=== PATIENT | male | born 1960 | race Caucasian/White ===

== ENCOUNTER 2019-03-22 09:42 | Inpatient (IN) ==
--- NOTE | 2019-02-03 07:55 | PAT Medication Instructions ---
Medication Instructions Date of Service February 03, 2019 Home Medications hyalur ac-chond sul-colg II-AA [Hyaluronic Acid (chond-collgn)] 1 cap PO QAM naproxen sodium 660 mg PO QAM ASK your surgeon for instructions naproxen sodium 660 mg PO QAM STOP taking 2 weeks before surgery (or as soon as possible if surgery is within 2 weeks) hyalur ac-chond sul-colg II-AA [Hyaluronic Acid (chond-collgn)] 1 cap PO QAM Other Notes If you have any questions please call us at [phone] or [phone] or [phone] or [phone]
--- NOTE | 2019-02-03 15:12 | Anesthesiology Consultation ---
Date of Service February 03, 2019 Assessment & Plan (1) Encounter for pre-operative examination: Chart Review Chart Review: Pending: Refer to Additional Notes / Consult section (pending preop testing (labs, EKG, CXR)) and Patient seen in Pre Admission Testing Teaching & Discussion Pre-Anesthesia Teaching/Discussion Notes: Instructed NPO after midnight before surgery,except medications with 15 cc of water. Medication instructions provide d according to the PAT guidelines. History Surgery Operation Date: 03/04/19 10:40 Proposed Procedures p Right total Knee Replacement - Hector Mohan MD Height/Weight Height: 5 ft 10 in Weight: 121.2 kg Allergies Allergy/AdvReac Type Severity Reaction Status Date / Time No Known Allergies Allergy Verified 01/27/19 10:18 Medications Home Medications Medication Instructions Recorded Confirmed Last Taken hyalur ac-chond sul-colg II-AA 1 cap PO QAM 01/27/19 01/27/19 Unknown [Hyaluronic Acid (chond-collgn)] naproxen sodium 660 mg PO QAM 01/27/19 01/27/19 Unknown Past Medical History Medical History Obesity Osteoarthritis Exercise / Class Metabolic Activity II 4-5 Yardwork/Stairs/Walk up hill Past Surgical History Surgical History History of arthroscopic knee surgery History of colonoscopy History of foot surgery Rt Past Anesthesia History No Hx of Anesthesia Complications Father: "goofiness" with ? morphine History of PONV No Hx of PONV and No Hx of Motion Sickness Social History Smoking Status: Never smoker Do You Dip or Chew Tobacco: No Hx Alcohol Use: No Hx Substance Use: No Review of Systems Patient denies chest pain, shortness of breath, dyspnea on exertion, joint pain, reflux, cough, wheezing, palpitations. Physical Exam Vital Signs VITALS BP 122/77 P 52 TEMP 97.7 SP02 97%RA RESP 16 PHYSICAL Full neck and c-spine range of motion. Full TMJ range of motion. TMD 3 finger breaths Mallampati Score 2 Dentition: missing side Lungs: clear throughout to auscultation Cardiac: regular rate and rhythm, no murmurs noted Spine: normal Carotid arteries: negative bruit Extremities: no edema
[2019-02-03 15:46] LABS: Basophils # (auto) 0.09 K/uL (0-0.2); Basophils % (auto) 1.1 %; Eosinophils # (auto) 0.13 K/uL (0-0.5); Eosinophils % (auto) 1.6 %; Hematocrit (blood only) 43.6 % (42-52); Hemoglobin 14.9 g/dL (14.0-18.0); Immature Granulocytes # (auto) 0.03 K/uL (0.00-0.02); Immature Granulocytes % (auto) 0.4 %; Lymphocytes # (auto) 1.65 K/uL (1.2-3.4); Lymphocytes % (auto) 20.6 %; Mean Corpuscular Hgb Conc 34.2 g/dL (32-36); Mean Corpuscular Volume 87.7 fL (80-100); Mean Platelet Volume 10.3 fL (7.4-10.4); Monocytes # (auto) 0.47 K/uL (0.11-0.59); Monocytes % (auto) 5.9 %; Neutrophils # (auto) 5.63 K/uL (1.4-6.5); Neutrophils % (auto) 70.4 %; Platelet Count 207 K/uL (130-400); RDW Coefficient of Variation 13.1 % (11.5-14.5); RDW Standard Deviation 41.8 fL (36.4-46.3); Red Blood Count 4.97 M/uL (4.7-6.1)
[2019-02-03 15:53] LABS: BUN Creatinine Ratio 28.9 (10-20); Calcium 9.3 mg/dl (8.5-10.1); Creatinine Clr Calc Pharmacy 112.1 ml/min; Potassium 3.8 mmol/L (3.5-5.1)
[2019-02-03 15:57] LABS: Partial Thromboplastin Time 26.5 Seconds (21.0-31.0); Prothrombin Time 10.6 Seconds (9.0-12.0)
--- NOTE | 2019-02-04 10:47 | XRay Report ---
XR chest Pre-admission PA/Lat CLINICAL HISTORY: 58 years-old Male presenting with preoperative assessment. TECHNIQUE: PA and lateral views of the chest were obtained. COMPARISON: None. FINDINGS: Top normal cardiac size. Lungs and pleural spaces clear. Degenerative changes of the thoracic spine. Upper abdomen normal. IMPRESSION: 1. No acute cardiopulmonary disease. Electronically signed by: Angelo Bland M.D. 02/04/2019 10:46 AM
--- NOTE | 2019-03-19 19:02 | History and Physical Report ---
DATE OF ADMISSION: 03/22/2019 CHIEF COMPLAINT: Bilateral knee pain, discomfort and instability. HISTORY OF PRESENT ILLNESS: The patient is a 58-year-old gentleman who presents for treatment of his knees. He presents specifically for surgical treatment. He has got a long history of bilateral knee pain and discomfort for as long as he can remember. It was initially his right knee, but now the left knee is caught up to the right. He describes global pain in both knees. He has pain with every step he takes. 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 The more he walks, the more it hurts. He limps all day long, but more as the day goes on. He has been through extensive conservative treatment including medicines and braces. He has gone through multiple braces and they just do not seem to help anymore. It is a good time of the year for him to have a surgery and he would like to have one of his knees fixed. PAST MEDICAL HISTORY: Mild obesity, BMI of 38. PAST SURGICAL HISTORY: Includes right heel spur surgery. ALLERGIES: None. CURRENT MEDICATIONS: Naproxen. SOCIAL HISTORY: A 58-year-old male. He is a roth. He is from the [facility]. Does not smoke. He is . Two children. Does not drink. FAMILY HISTORY: Significant for melanoma and diabetes. REVIEW OF HISTORY: Negative for diabetes, neurologic problem, vascular problem, bleeding disorders. Denies any chest pain or shortness of breath. No history of DVT or PE. No known bleeding problems. PHYSICAL EXAMINATION: GENERAL: Reveals a healthy, pleasant, middle-aged male. Looks to be in pretty good health. HEENT: Benign. NECK: Supple, no lymphadenopathy. LUNGS: Clear to auscultation. HEART: Has a regular rate and rhythm. ABDOMEN: Soft, nontender, nondistended. EXTREMITIES: Grossly neurovascularly intact except as follows: Examination of both knees reveals patient walks with a waddling gait. He has got varus alignment to both knees with a varus thrust with weightbearing on both sides. Examination of the right knee reveals varus deformity. He has got tenderness medially. He has got bony hypertrophy medially. Moderate size joint effusion. Range of motion about 5 degrees short of full extension to about 100-105 degrees of flexion. He does have some laxity to Johnie testing. No pain with hip motion. He is neurologically intact. Examination of the left knee reveals varus deformity. He has got bony hypertrophy medially. Small knee effusion. Range of motion 5-110. No instability. X-RAYS: X-rays of both knees revealed advanced bilateral knee DJD. He has got complete loss of his medial joint space bilaterally with subchondral sclerosis and osteophytes in all 3 compartments. Both knees are pretty equal in severity. ASSESSMENT: A 58-year-old male roth with advanced bilateral knee degenerative joint disease. He has failed conservative treatment and would like to proceed with surgical treatment. This is the time of year that he can have his knee fixed and he would like to do one knee this year, maybe one next year. PLAN: We will take him to the operating room and do a right total knee replacement. That seems to be slightly worse than the other and has been bothering him longer. The risks and benefits of right total knee replacement were explained to the patient including but not limited to DVT, PE, , infection, neurological injury, vascular injury, bleeding problem, pain, limited range of motion, stiffness, failure to relieve his symptoms, incomplete relief of symptoms, persistent pain, need for revision surgery, etc. The patient understands and desires to proceed. Informed consent was obtained. Due to his large size and just general large stature, I may put a stem in his tibia due to his significant deformity in his knee.
[~2019-03-22 09:42] MED LIST: ACETAMINOPHEN 500 MG TAB PO SCH; BUPIVACAINE 0.5 % 5 MG/1 ML PF 10ML VIAL ONE; BUPIVACAINE LIPOSOME/PF 266 MG, BUPIVACAINE/EPINEPHRINE 50 ML, SODIUM CHLORIDE 0.9% 30 ... INFIL SCH; EPINEPHrine INJ 1 MG/ML AMP ONE; FAMOTIDINE 20 MG TAB PO SCH; GABAPENTIN 600 MG DOSE PO SCH; GENERAL ORDER PROBLEM SCH; LR 15ML/HR IV SCH; LR 500ML BOLUS, THEN 15ML/HR IV SCH; LR 60ML/HR IV SCH; METOCLOPRAMIDE HCL 10 MG TABLET PO SCH; ROPIVACAINE 0.5% 5 MG/ML 30 ML VIAL ONE; SCOPOLAMINE 1.5 MG TDSY TD SCH; TRANEXAMIC ACID 1,000 MG **IV Intra-op IV SCH
--- NOTE | 2019-03-22 10:35 | History & Physical Bridge Note ---
Date of Service March 22, 2019 History & Physical Bridge Note I have examined the patient, reviewed the History & Physical and in the interval since the performance of the History & Physical I have noted the following changes of clinical significance: no changes noted
[2019-03-22] MEDS ORDERED: CEFAZOLIN 3000MG 72.5 ML IV ONE (10:39)
[2019-03-22] MEDS ORDERED: CEFAZOLIN 3000MG/72.5 ML BAG IV ONE (10:44)
[2019-03-22] MEDS ORDERED: PROPOFOL IV EMULSION 10 MG/ML 20 ML VIAL IV ONE ×4 (12:02→14:47)
[2019-03-22] MEDS ORDERED: LIDOCAINE HCL 2% 2 ML VIAL/AMP(20MG/ML) INFIL ONE (12:02)
[2019-03-22] MEDS ORDERED: fentaNYL citrate 100 MCG/2 ML VIAL ONE (12:03)
[2019-03-22] MEDS ORDERED: MIDAZOLAM HCL 1 MG/ML 2ML VIAL ONE ×2 (12:03→14:54)
[2019-03-22] MEDS ORDERED: ePHEDrine sulfate 50 MG/ML AMP IV PRN (12:23)
[2019-03-22] MEDS ORDERED: ATROPINE SULFATE 0.1 MG/ML 10ML SYR IV PRN (12:23)
[2019-03-22] MEDS ORDERED: ONDANSETRON INJ 2 MG/ML 2 ML VIAL IV PRN ×2 (12:23→16:25)
[2019-03-22] MEDS ORDERED: HYDROmorphone INJ 1 MG/ML SYRINGE IV PRN (12:23)
[2019-03-22] MEDS ORDERED: fentaNYL citrate 100 MCG/2 ML VIAL IV PRN (12:23)
[2019-03-22] MEDS ORDERED: BUPIVACAINE/EPINEPHRINE 0.25% 1:200,000 30 ML VIAL ONE (12:27)
[2019-03-22] MEDS ORDERED: BACITRACIN INJ 50,000 UNIT VIAL ONE ×2 (12:27→14:39)
[2019-03-22] MEDS ORDERED: SODIUM CHLORIDE 0.9% PF 50 ML VIAL ONE (12:27)
[2019-03-22] MEDS ORDERED: BUPIVACAINE 0.25% 30 ML VIAL ONE (12:28)
[2019-03-22] MEDS ORDERED: EPINEPHrine INJ 1 MG/ML AMP ONE (12:28)
[2019-03-22] MEDS ORDERED: BUPIVACAINE LIPOSOME 1.3% 266 MG/20 ML VIAL ONE (12:45)
[2019-03-22] MEDS ORDERED: ONDANSETRON INJ 2 MG/ML 2 ML VIAL ONE (15:03)
--- NOTE | 2019-03-22 15:27 | Post Operative Brief Note ---
PG Immediate Post Op with CF Date of Surgery March 22, 2019 Pre & Post Diagnosis Operation Date: 03/22/19 12:30 Pre-Op Diagnosis: Right Knee Degenerative Joint Disease; Knee Pain Post-Op Diagnosis: Right Knee Degenerative Joint Disease; Knee Pain I identified the patient and participated in the time-out.: Yes Procedure Operation Date: 03/22/19 12:30 Actual Procedures p Right Total Knee Replacement(Right) - Hector Mohan MD Surgeon Hector Mohan MD Marketing Support Specialist Vanessa, [facility] Estimated Blood Loss 50 Findings Consistent with Post-Op Diagnosis Fluids 1200 cc Specimens Specimen Description: Permanent: A. Bone and Tissue, Right Knee Drains Martin Catheter Anesthesia Type Spinal MAC Complications none Disposition Accompanied Patient To Recovery: No Disposition: Recovery Room
--- NOTE | 2019-03-22 15:47 | XRay Report ---
XR knee RT 1 or 2V routine HISTORY: 58 years-old Male Surgical Post Op right knee total joint arthroplasty. History of degenera tive joint disease COMPARISON: Knee radiographs 02/03/2019 TECHNIQUE: 2 views of the right knee FINDINGS: Right knee total joint arthroplasty and patella resurfacing demonstrates satisfactory alignment. Curv ilinear lucency of the distal femoral central metaphysis is likely postsurgical. Anterior midline ski n shweta are noted along with expected postsurgical soft tissue swelling and deep tissue air with bahena rgical drainage catheter. There is no acute fracture, dislocation or opaque foreign body. IMPRESSION: Satisfactory alignment of the right knee total joint arthroplasty. The above report was generated using voice recognition software. It may contain grammatical, syntax o r spelling errors. Electronically signed by: Michael Plascencia M.D. 03/22/2019 3:46 PM
--- NOTE | 2019-03-22 15:56 | Anesthesiology Progress Note ---
Date of Service March 22, 2019 Anesthesia Post Procedure Vital Signs Vital Signs: Temp Pulse Pulse Resp BP Pulse Ox 03/22/19 15:50 37.5 C 63 18 107/64 93 03/22/19 15:40 66 20 111/62 98 03/22/19 15:32 37.1 C 72 20 110/62 97 03/22/19 10:13 36.5 C 62 20 139/80 96 Transfer of Care Handoff Completed per policy Notes Mental Status: alert / awake / arousable and participated in evaluation Patient Amnestic to Procedure: Yes Nausea / Vomiting: adequately controlled Pain: adequately controlled Airway Patency, RR, SpO2: stable & adequate BP & HR: stable & adequate Hydration State: stable & adequate Neuraxial Anesthesia: was administered and sensory block is resolving Anesthetic Complications: no major complications apparent and Pt Satisfied with anesthetic care
[2019-03-22] MEDS ORDERED: bisacodyL 10 MG SUPP PR PRN (16:25)
[2019-03-22] MEDS ORDERED: TAMSULOSIN HCL 0.4 MG CAP PO PRN (16:25)
[2019-03-22] MEDS ORDERED: ALUMINUM/MAGNESIUM SUSP 30 ML UDC PO PRN (16:25)
[2019-03-22] MEDS ORDERED: METOCLOPRAMIDE HCL INJ 5 MG/ML 2 ML VIAL IV PRN (16:25)
[2019-03-22] MEDS ORDERED: HYDROmorphone INJ 0.5 MG/0.5 ML SYR IV PRN (16:25)
[2019-03-22] MEDS ORDERED: NALOXONE HCL 0.4 MG/1 ML VIAL/CARP IV PRN (16:25)
[2019-03-22] MEDS ORDERED: MAGNESIUM HYDROXIDE SUSP 30 ML UDC PO PRN (16:25)
[2019-03-22] MEDS: SODIUM CHLORIDE 0.9% 1000ML 1,000 ML IV SCH ×2 (16:59→22:51)
[2019-03-22] MEDS: CHECK SCOPOLAMINE PATCH PLACEMENT SCH ×2 (16:59→23:13)
[2019-03-22] MEDS: KETOROLAC 30 MG/ML VIAL IV SCH ×2 (17:34→22:51)
[2019-03-22] MEDS: OXYCODONE HCL IR 5 MG TAB (IMMEDIATE RELEASE) PO PRN (18:42)
[2019-03-22] MEDS: FERROUS GLUCONATE 324 MG TAB PO SCH (18:43)
[2019-03-22] MEDS: ASCORBIC ACID 500 MG TAB PO SCH (18:43)
--- NOTE | 2019-03-22 19:20 | Operative Report ---
Post Operative Report Pre & Post Diagnosis Operation Date: 03/22/19 12:30 Pre-Op Diagnosis: Right Knee Degenerative Joint Disease; Knee Pain Post-Op Diagnosis: Right Knee Degenerative Joint Disease; Knee Pain I identified the patient and participated in the time-out.: Yes Procedure Operation Date: 03/22/19 12:30 Actual Procedures p Right Total Knee Replacement(Right) - Hector Mohan MD Surgeon Hector Mohan MD Portable Sawmill Operator Vanessa, PAC Estimated Blood Loss 50 Findings Consistent with Post-Op Diagnosis Operative findings revealed advanced right knee DJD. Extensive grade 4 changes in all 3 compartments most severe in the medial side. Extensive eburnation medial femoral condyle medial tibial plateau with a large fixed varus deformity to his knee with the wear of the medial tibial plateau. A large knee joint effusion. He had a very large cyst of the distal femur metaphyseal region about the size of a golf ball filled with fat and fluid. This primarily just involve the cancellus bone as in his quarters equal shell was very well preserved and appeared strong. He also had cyst in the tibia which were much smaller. Fluids 1200 cc Specimens Right knee sent for pathology. Anesthesia Type Spinal MAC Complications none Disposition Accompanied Patient To Recovery: No Disposition: Recovery Room Indications Patient is a 58-year-old very active roth whose had a long history of bilateral knee pain discomfort describes gotten worse over the past 15 years. Is been through extensive conservative treatment to just become more disabling pain. 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 He has severe arthritic changes in both knees. He like to proceed with right total knee arthroplasty. Description of Procedure Operative implants consisted of: 1. Biomet Vanguard size 75 right posterior bifemoral component. 2. Biomet Vanguard size 79 tibial tray with a small cruciate wing, 5 mm offset adapter, 18 mm x 80 mm tibial stem. 3. 14 mm posterior stabilized polyethylene insert. 4. 34 x 8.5 all poly-patella. Patient was taken to the operating room identified and placed on the operating table supine position. Contact there is probably padded. IV antibiotic for by anesthesia team. Spinal anesthetic and abductor canal block had been provided holding area. Martin catheter was placed in sterile fashion the right doctor was then placed in the right lower extremities and prepped draped in usual sterile fashion. Right leg was elevated and exsanguinated use of an Esmarch interspace at 3 mmHg. An anterior approach to the right knee was then performed the longitudinal incision centered over the patella. Sharp passes cut through subcutaneous tissue down below the extensor mechanism. A medial parapatellar arthrotomy incision was made. Some subperiosteal dissection was carried out medially. I did an extensive dissection medially due to his fixed varus deformity to his knee. We had to release the medial structures. The fat pad was resected from beneath patella tendon. Lateral patellofemoral ligament was released. The patella was everted knee was flexed. The osteophytes taken off the distal femur. His ACL was chronically absent. PCL was released from the distal femur. The tibia subluxated anteriorly. I then used a saw to resect the central portion of the tibial plateau and the tibial eminence. I then used the entry guide into the IM canal and then I reamed up to a size 18. I then used the cutting guide and reamer to make the proximal cut removing about a millimeter bone from the most efficient aspect of the medial tibial plateau. This did take off a fairly large piece off laterally. We then prepared the proximal tibia for a 5 mm offset and 18 mm stem. We used a small cruciate punch. The trial implant was assembled and placed in the tibia and fit quite nicely. Attention down the femur. Disc femur with a sharp drill bit intramedullary canal was suction. A right 6 degree valgus cutting guide was placed. The distal femoral cutting block was pinned in place but this femoral cut was made to take an additional 3 mm of bone off the distal femur. The femur was then sized to a size 75. We did down size this slightly. The AP cutting block was pinned parallel to the epicondylar axis which was 3 degrees of external rotation. The anterior cut, anterior chamfer, posterior cut, posterior chamfer cuts were made. Box cutting guide was placed and just slightly lateral and the box cut was made. There was a very large cyst in the distal femur. We spent some time curette and the cyst out to get back to bone. It primarily involves just the cancellus bone. The cortices appeared fully intact and therefore I did not place a stent which I did consider. I elected the bone graft the distal femur with portions of the bone resected. A trial femoral component was placed. I then trialed the knee and the 14 mm inse rt fit most appropriately. Attention down the patella. The patella was cleaned of all soft tissues. Patella thickness measured 23 mm in thickness was cut down to 14 but was sized to a size 34 patella. Locals were drilled for 34 patella. The lateral osteophyte is moved. Patella button was placed. Knee was taken through range of motion patella tracked nicely with no thumbs test. I like to place these implants. All trial implants were removed. I irrigated the wound extensively. I curetted out multiple cyst of the tibia and the distal femur. I then took some large pieces of bone from the resected segments and placed them in the distal femur to reconstitute the bone. Make sure these pieces were large enough that they were not going to fall out through the femoral component. Attention was then Familia placed in the implants. Double batch Palacos G cement was mixed. A right size 75 posterior bifemoral component, size 79 tibial tray with a 18 mm x 80 mm offset stem with a small cruciate wing was then placed cementing the metaphyseal component followed by a 34 by a Fab all poly-patella. All extraneous cement was removed. The knee was brought in full extension until cement hardened. Final cement check was then performed. Of note I did pack the distal femur full of this a bone graft. Once the cement hardened I did irrigated extensively. We injected locally with a to bryn of 100 cc of combination of 20 cc of Exparel, 30 cc normal saline, 50 cc of quarter percent Marcaine with epinephrine. Patient did receive 1 g of tranexamic acid. The tendon was then let down for tourniquet time of 105 minutes. Hemostasis should use electrocautery. The wounds once again irrigated. Extensor macros then closed with combination 1 PDS suture #1 Vicryl suture in [id number] fashion. Extensor macros was checked and found to be intact the subtenons tissue then closed with 2 Dexon suture in a buried interrupted fashion skin was closed skin shweta. Leg was then cleaned dried and sterile dressing was Xeroform for 4 sterile cast padding Chase bandage were applied. Patient then transferred to the recovery room in stable condition. The patient tolerated procedure well and there were no complications. All needle sponge counts are correct at the end the operation. I attest to the content of the Intraoperative Record and any orders documented therein. Any exceptions are noted below.
[2019-03-22] MEDS: SENNA 8.6 MG TAB PO SCH (20:33)
[2019-03-22] MEDS: CEFAZOLIN 2000MG 2,000 MG/15 ML SYR IV SCH (20:33)
[2019-03-22] MEDS: TAPENTADOL HCL ER 50 MG TABCR PO SCH (20:33)
[2019-03-22] MEDS: DOCUSATE SODIUM 100 MG CAP PO SCH (20:34)
[2019-03-22] MEDS: ASPIRIN 81 MG ECTAB PO SCH (20:34)
[2019-03-22] MEDS: ACETAMINOPHEN 500 MG TAB PO SCH (20:34)
[2019-03-22] MEDS ORDERED: TRANEXAMIC ACID 1,000 MG in 0.9 % SODIUM CHLORIDE 100 ML IV SCH (21:28)
[2019-03-23] MEDS: CEFAZOLIN 2000MG 2,000 MG/15 ML SYR IV SCH (05:22)
[2019-03-23] MEDS: KETOROLAC 30 MG/ML VIAL IV SCH ×4 (05:22→22:11)
[2019-03-23] MEDS: ACETAMINOPHEN 500 MG TAB PO SCH ×3 (05:22→21:47)
[2019-03-23 06:06] LABS: Hemoglobin 12.5 g/dL (14.0-18.0); Mean Corpuscular Hemoglobin 29.8 pg (25-34); Mean Corpuscular Hgb Conc 33.8 g/dL (32-36); Mean Corpuscular Volume 88.1 fL (80-100); Mean Platelet Volume 9.8 fL (7.4-10.4); Platelet Count 182 K/uL (130-400); RDW Coefficient of Variation 12.9 % (11.5-14.5); RDW Standard Deviation 41.4 fL (36.4-46.3); White Blood Count 9.78 K/uL (4.8-10.8)
[2019-03-23] MEDS: OXYCODONE HCL IR 5 MG TAB (IMMEDIATE RELEASE) PO PRN ×4 (06:33→21:50)
[2019-03-23 06:45] LABS: BUN Creatinine Ratio 20.3 (10-20); Calcium 8.1 mg/dl (8.5-10.1); Creatinine Clr Calc Pharmacy 89.1 ml/min; Est GFR (African American) 77.9; Est GFR (Non-African American) 67.2; Potassium 3.8 mmol/L (3.5-5.1)
[2019-03-23] MEDS: ASCORBIC ACID 500 MG TAB PO SCH ×2 (07:27→16:25)
[2019-03-23] MEDS: FERROUS GLUCONATE 324 MG TAB PO SCH ×2 (07:27→16:25)
[2019-03-23] MEDS: TAPENTADOL HCL ER 50 MG TABCR PO SCH ×2 (08:26→21:51)
[2019-03-23] MEDS: ASPIRIN 81 MG ECTAB PO SCH ×2 (08:26→21:47)
[2019-03-23] MEDS: DOCUSATE SODIUM 100 MG CAP PO SCH ×2 (08:26→21:47)
[2019-03-23] MEDS: MULTIVITAMIN TAB PO SCH (08:26)
--- NOTE | 2019-03-23 17:42 | Progress Note ---
DATE: 03/23/2019 SUBJECTIVE: A 58-year-old gentleman postop day 1 from right knee replacement. A fairly large surgery for a primary knee. He is doing quite well. Pain has been controlled. Denies any chest pain or shortness of breath. Not feeling dizzy or lightheaded. OBJECTIVE: VITAL SIGNS: Temperature 37.0. Vital signs stable. GENERAL: Shows a pleasant, middle-aged male. He is walking around the room using his walker, doing quite well. He has got a little drainage on the front of his dressing. He can dorsiflex and plantarflex his foot appropriately. He is neurologically intact. LABORATORY DATA: Hemoglobin 12.5. Hematocrit 37.0. Electrolytes are stable. ASSESSMENT: A 58-year-old gentleman postop day 1 from right knee replacement, doing quite well. Fairly extensive surgery for a primary knee. He is getting around quite well. Pain is controlled. He is neurologically intact. PLAN: 1. DVT prophylaxis including thigh-high TEDs, SCDs, and aspirin twice a day. 2. PT/OT. Weight bear as tolerated. Right total knee protocol. 3. Pain control, doing pretty well with current pain regimen. 4. Disposition: Plan to discharge to home and plans on outpatient PT when adequately recovered and medically stable. MANDY
[2019-03-23] MEDS: SENNA 8.6 MG TAB PO SCH (21:47)
[2019-03-24] MEDS: ACETAMINOPHEN 500 MG TAB PO SCH (05:34)
[2019-03-24] MEDS: KETOROLAC 30 MG/ML VIAL IV SCH ×2 (05:34→10:55)
--- NOTE | 2019-03-24 07:27 | Progress Note ---
DATE: 03/24/2019 SUBJECTIVE: A 58-year-old gentleman postop day 2 from a right knee replacement. He is doing pretty well. Pain is controlled. Denies any chest pain or shortness of breath. Not feeling dizzy or lightheaded. OBJECTIVE: VITAL SIGNS: Temperature 37.5. Vital signs stable. GENERAL: Shows a pleasant, middle-aged male. He is moving around in his room quite well. EXTREMITIES: Examination of the right leg reveals the dressing to be in place. There is some bloody drainage superiorly. Calf is soft and supple. He can do a straight leg raise. He can dorsiflex and plantarflex his foot appropriately. ASSESSMENT: A 58-year-old gentleman postop day 2 from right knee replacement, doing well. Pain is controlled. He is neurologically intact. PLAN: 1. DVT prophylaxis including thigh-high TEDs, SCDs, and aspirin twice a day. 2. PT/OT. Weight bear as tolerated. Right total knee protocol. 3. Pain control, doing pretty well with current pain regimen. 4. Disposition: Plan to discharge to home and he is going to do outpatient therapy.
[2019-03-24] MEDS: ASCORBIC ACID 500 MG TAB PO SCH (08:42)
[2019-03-24] MEDS: FERROUS GLUCONATE 324 MG TAB PO SCH (08:42)
[2019-03-24] MEDS: DOCUSATE SODIUM 100 MG CAP PO SCH (08:42)
[2019-03-24] MEDS: ASPIRIN 81 MG ECTAB PO SCH (08:43)
[2019-03-24] MEDS: TAPENTADOL HCL ER 50 MG TABCR PO SCH (08:43)
[2019-03-24] MEDS: MULTIVITAMIN TAB PO SCH (08:43)
[2019-03-24] MEDS: OXYCODONE HCL IR 5 MG TAB (IMMEDIATE RELEASE) PO PRN (11:05)
--- NOTE | 2019-03-30 23:00 | Discharge Summary ---
ADMITTING PHYSICIAN AND SURGEON: Dr. Hector Mohan. ADMITTING DIAGNOSIS: Right knee degenerative joint disease. SURGERY PERFORMED: Right total knee arthroplasty. SECONDARY DIAGNOSIS: Mild obesity. CONSULTS: None obtained. HISTORY AND PHYSICAL EXAMINATION: Well documented in the patient's chart. HOSPITAL COURSE: The patient was admitted on 03/22/2019, underwent total knee arthroplasty, tolerated the procedure well. There were no complications. He was transferred to the PACU postoperatively and later to the orthopedic floor for further care. He was given Ancef for antibiotic prophylaxis, EMELY stockings, SCDs and aspirin for DVT prophylaxis. Hemoglobin, hematocrit and vital signs were monitored during his hospital stay and remained stable, did not require any blood transfusions. There were no complications. On postoperative day 2, he was tolerating a regular diet, pain was controlled with oral pain medicine. He was participating in physical therapy. On postop day 2, he was discharged home. He was given printed discharge instructions as well as new prescriptions for extra strength Tylenol, aspirin, and oxycodone. Continue his home medicines. Continue physical therapy, weightbearing as tolerated, EMELY stockings. Follow up approximately 2 weeks postop or sooner if there are any problems or concerns.
== END 2019-03-24 11:44 | disposition home or self-care (01) | DRG 470 ==
LOC: ASU 09:42 → 3E 15:30

== ENCOUNTER 2020-03-09 10:25 | Observation (INO) ==
--- NOTE | 2020-02-08 12:59 | PAT Medication Instructions ---
Medication Instructions Date of Service February 08, 2020 Home Medications naproxen sodium 220 - 440 mg PO QAM ASK your surgeon for instructions naproxen sodium 220 - 440 mg PO QAM Other Notes If you have any questions please call us at [phone] or [phone] or [phone] or [phone]
--- NOTE | 2020-02-09 12:20 | Anesthesiology Consultation ---
Date of Service February 09, 2020 Assessment & Plan (1) Encounter for pre-operative examination: - Per assessment on 02/08: Travel screen negative. No known COVID-19 positive contacts or current COVID-19 related symptoms. Patient reports to occasionally not wearing masks in public places. Education provided. Surgeon arranging preop COVID testing. Awaiting results. - S/P Right TKA: 03/22/19: SAB x1 attempt at L3-L4 + PNB at [facility] Chart Review Chart Review: Acceptable Risk for Surgery and Patient seen in Pre Admission Testing Teaching & Discussion Pre-Anesthesia Teaching/Discussion Notes: Instructed NPO after midnight before surgery,except medications with 15 cc of water. Medication instructions provided according to the PAT guidelines. History Surgery Operation Date: 03/09/20 10:55 Proposed Procedures p Left Total Knee Replacement - Hector Mohan MD Height/Weight Height: 5 ft 11 in Weight: 119.3 kg Allergies Allergy/AdvReac Type Severity Reaction Status Date / Time No Known Allergies Allergy Verified 02/01/20 12:06 Medications Home Medications Medication Instructions Recorded Confirmed Last Taken naproxen sodium 220 - 440 mg PO QAM 01/27/19 02/01/20 02/22/19 Past Medical History Medical History Left knee DJD Obesity Osteoarthritis Exercise / Class Metabolic Activity II 4-5 Yardwork/Stairs/Walk up hill Past Family History Family History Father Family history of diabetes mellitus Past Surgical History Surgical History History of arthroscopic knee surgery unsure which side History of colonoscopy History of foot surgery right History of tooth extraction History of total knee replacement right Past Anesthesia History No Hx of Anesthesia Complications and No Family Hx of Anesthesia Complications History of PONV No Hx of PONV and No Hx of Motion Sickness Social History Smoking Status: Never smoker Do You Dip or Chew Tobacco: No Hx Alcohol Use: No Hx Substance Use: No substance use type: does not use Review of Systems Patient denies chest pain, shortness of breath, dyspnea on exertion, fever, chills, cough, wheezing, palpitations. Physical Exam Vital Signs VITALS BP 125/77 P 63 TEMP 97.9 SP02 95%RA RESP 16 PHYSICAL Full neck and c-spine range of motion. Full TMJ range of motion. TMD 3.5 finger breaths Mallampati Score 2 Dentition: left side missing Lungs: clear throughout to auscultation Cardiac: regular rate and rhythm, no murmurs noted Spine: normal Carotid arteries: negative bruit Extremities: no edema Testing Laboratory Results 02/09/20 12:36 02/09/20 12:36 PT 10.4 Seconds (9.0-12.0) 02/09/20 12:36 INR 1.0 (0.9-1.1) 02/09/20 12:36 APTT 29.3 Seconds (21.0-31.0) 02/09/20 12:36 Blood Type A Positive 02/09/20 12:36 Antibody Screen NEGATIVE 02/09/20 12:36 Electrocardiogram Date: 02/09/20 SB at 58bpm. Chest X-Ray Date: 02/09/20 FINDINGS: Lung volumes are normal. Lungs are clear. There is no pneumothorax or pleural effusion. Cardiac size is normal. Mediastinal contours are normal. There is no evidence for pulmonary edema. IMPRESSION: No acute cardiopulmonary findings.
--- NOTE | 2020-02-09 13:02 | XRay Report ---
XR chest Pre-admission PA/Lat CLINICAL HISTORY: Preoperative evaluation. COMPARISON STUDY: Chest radiograph February 03, 2018. FINDINGS: Lung volumes are normal. Lungs are clear. There is no pneumothorax or pleural effusion. Car diac size is normal. Mediastinal contours are normal. There is no evidence for pulmonary edema. IMPRESSION: No acute cardiopulmonary findings. ACT 112: Negative or not required by law. Electronically signed by: Fabiano Fang M.D. 02/09/2020 1:00 PM
[2020-02-09 13:25] LABS: Basophils # (auto) 0.05 K/uL (0-0.2); Basophils % (auto) 0.8 %; Eosinophils # (auto) 0.15 K/uL (0-0.5); Eosinophils % (auto) 2.4 %; Hemoglobin 14.6 g/dL (14.0-18.0); Immature Granulocytes # (auto) 0.02 K/uL (0.00-0.02); Immature Granulocytes % (auto) 0.3 %; Lymphocytes # (auto) 1.23 K/uL (1.2-3.4); Lymphocytes % (auto) 19.8 %; Mean Corpuscular Hgb Conc 34.8 g/dL (32-36); Mean Corpuscular Volume 86.2 fL (80-100); Mean Platelet Volume 9.7 fL (7.4-10.4); Monocytes # (auto) 0.36 K/uL (0.11-0.59); Monocytes % (auto) 5.8 %; Neutrophils % (auto) 70.9 %; Platelet Count 232 K/uL (130-400); RDW Coefficient of Variation 12.9 % (11.5-14.5); RDW Standard Deviation 41.1 fL (36.4-46.3); Red Blood Count 4.87 M/uL (4.7-6.1); White Blood Count 6.21 K/uL (4.8-10.8)
[2020-02-09 13:37] LABS: Partial Thromboplastin Ratio 1.1; Partial Thromboplastin Time 29.3 Seconds (21.0-31.0); Prothrombin Time 10.4 Seconds (9.0-12.0)
[2020-02-09 15:41] LABS: BUN Creatinine Ratio 27.4 (10-20); Blood Urea Nitrogen 25 mg/dl (7-18); Calcium 8.9 mg/dl (8.5-10.1); Carbon Dioxide 27 mmol/L (21-32); Chloride 107 mmol/L (98-107); Creatinine Clr Calc Pharmacy 117.7 ml/min; Est GFR (Non-African American) 93.2; Glucose 85 mg/dl (70-99); Sodium 139 mmol/L (136-145)
[2020-02-09 15:42] LABS: C Reactive Protein < 0.29 mg/dl (0-0.29)
--- NOTE | 2020-02-09 17:59 | Electrocardiogram Report ---
Test Reason : Blood Pressure : / mmHG Vent. Rate : 058 BPM Atrial Rate : 058 BPM P-R Int : 180 ms QRS Dur : 116 ms QT Int : 436 ms P-R-T Axes : -02 057 029 degrees QTc Int : 428 ms Sinus bradycardia Otherwise normal ECG When compared with ECG of 03-FEB-2019 15:16, Right bundle branch block is no longer Present Confirmed by Raleigh Quinones ([id number]) on 02/09/2020 5:58:30 PM Referred By: Hector Mohan Confirmed By:Carlos Alberto Quinones
[~2020-03-09 10:25] MED LIST changes: +BUPIVACAINE 0.25% 30 ML VIAL ONE; -GENERAL ORDER PROBLEM SCH; -LR 15ML/HR IV SCH; -ROPIVACAINE 0.5% 5 MG/ML 30 ML VIAL ONE; -SCOPOLAMINE 1.5 MG TDSY TD SCH; +ceFAZolin 2000MG 2,000 MG/15 ML SYR IV SCH
[2020-03-09] MEDS ORDERED: fentaNYL citrate 100 MCG/2 ML VIAL ONE (10:47)
[2020-03-09] MEDS ORDERED: MIDAZOLAM HCL 1 MG/ML 2ML VIAL ONE (10:47)
--- NOTE | 2020-03-09 11:11 | History & Physical Bridge Note ---
Date of Service March 09, 2020 History & Physical Bridge Note I have examined the patient, reviewed the History & Physical and in the interval since the performance of the History & Physical I have noted the following changes of clinical significance: no changes noted
[2020-03-09] MEDS ORDERED: ePHEDrine sulfate 50 MG/ML AMP IV PRN (12:25)
[2020-03-09] MEDS ORDERED: ONDANSETRON INJ 2 MG/ML 2 ML VIAL IV PRN ×2 (12:25→16:19)
[2020-03-09] MEDS ORDERED: HYDROmorphone INJ 2 MG/ML SYR/VIAL IV PRN (12:25)
[2020-03-09] MEDS ORDERED: fentaNYL citrate 100 MCG/2 ML VIAL IV PRN (12:25)
[2020-03-09] MEDS ORDERED: ATROPINE SULFATE 0.1 MG/ML 10ML SYR IV PRN (12:25)
[2020-03-09] MEDS ORDERED: BUPIVACAINE LIPOSOME 1.3% 266 MG/20 ML VIAL ONE ×2 (12:45→13:14)
[2020-03-09] MEDS ORDERED: BACITRACIN INJ 50,000 UNIT VIAL ONE (12:45)
[2020-03-09] MEDS ORDERED: SODIUM CHLORIDE 0.9% PF 50 ML VIAL ONE ×2 (12:46→13:15)
[2020-03-09] MEDS ORDERED: EPINEPHrine INJ 1 MG/ML AMP ONE ×2 (12:48→13:16)
[2020-03-09] MEDS ORDERED: BUPIVACAINE 0.25% 30 ML VIAL ONE ×3 (12:48→13:15)
[2020-03-09] MEDS ORDERED: PROPOFOL IV EMULSION 10 MG/ML 20 ML VIAL IV ONE ×4 (13:17→14:39)
[2020-03-09] MEDS ORDERED: ePHEDrine sulfate 50 MG/ML SYR ONE (15:08)
[2020-03-09] MEDS ORDERED: PHENYLEPHRINE 100MCG/ML 5ML SYR ONE (15:08)
--- NOTE | 2020-03-09 15:27 | Post Operative Brief Note ---
PG Immediate Post Op with CF Date of Surgery March 09, 2020 Pre & Post Diagnosis Operation Date: 03/09/20 12:30 Pre-Op Diagnosis: Left Knee Degenerative Joint Disease; Knee Pain Post-Op Diagnosis: Left Knee Degenerative Joint Disease; Knee Pain I identified the patient and participated in the time-out.: Yes Procedure Operation Date: 03/09/20 12:30 Actual Procedures p Left Total Knee Replacement(Left) - Hector Mohan MD Surgeon Hector Mohan MD Chief Librarian Music Department Vanessa, PAC Estimated Blood Loss 50 Findings Consistent with Post-Op Diagnosis Fluids 1300 cc Specimens Specimen Description: Permanent Specimen A: Bone and tissue left knee Drains Martin Catheter (inserted by Jackie Hopkins Rn without difficulty draining clear yellow urine. ) Anesthesia Type Spinal MAC Complications none Disposition Accompanied Patient To Recovery: No Disposition: Recovery Room
--- NOTE | 2020-03-09 16:05 | XRay Report ---
XR knee LT 1 or 2V routine CLINICAL HISTORY: Postoperative evaluation. COMPARISON: Knee radiographs May 27, 2019. FINDINGS: Alignment of the left knee arthroplasty is anatomic. Longstem tibial component is present. There are skin shweta. There is no periprosthetic fracture or unexpected radiopaque foreign body. IMPRESSION: Expected findings following total left knee arthroplasty. ACT 112: Negative or not required by law. Electronically signed by: Fabiano Fang M.D. 03/09/2020 4:04 PM
[2020-03-09] MEDS ORDERED: HYDROmorphone INJ 0.5 MG/0.5 ML SYR IV PRN (16:19)
[2020-03-09] MEDS ORDERED: bisacodyL 10 MG SUPP PR PRN (16:19)
[2020-03-09] MEDS ORDERED: ALUMINUM/MAGNESIUM SUSP 30 ML UDC PO PRN (16:19)
[2020-03-09] MEDS ORDERED: diphenhydrAMINE Capsule 25 MG CAP PO PRN (16:19)
[2020-03-09] MEDS ORDERED: NALOXONE HCL 0.4 MG/1 ML VIAL/CARP IV PRN (16:19)
[2020-03-09] MEDS ORDERED: METOCLOPRAMIDE HCL INJ 5 MG/ML 2 ML VIAL IV PRN (16:19)
[2020-03-09] MEDS ORDERED: TAMSULOSIN HCL 0.4 MG CAP PO PRN (16:19)
[2020-03-09] MEDS ORDERED: MAGNESIUM HYDROXIDE SUSP 30 ML UDC PO PRN (16:19)
[2020-03-09] MEDS ORDERED: traMADol HCL 50 MG TABLET PO PRN (16:19)
--- NOTE | 2020-03-09 16:35 | Anesthesiology Progress Note ---
Date of Service March 09, 2020 Anesthesia Post Procedure Vital Signs Vital Signs: Temp Pulse Pulse Resp BP Pulse Ox 03/09/20 16:00 36.5 C 47 L 14 107/60 96 03/09/20 15:50 36.5 C 42 L 14 105/62 96 03/09/20 15:40 49 L 14 109/64 95 03/09/20 15:32 36.5 C 62 12 112/60 98 03/09/20 10:48 36.9 C 64 20 128/73 97 Transfer of Care Handoff Completed per policy Notes Mental Status: alert / awake / arousable and participated in evaluation Nausea / Vomiting: adequately controlled Pain: adequately controlled Airway Patency, RR, SpO2: stable & adequate BP & HR: stable & adequate Hydration State: stable & adequate Neuraxial Anesthesia: was administered and sensory block is resolving Anesthetic Complications: no major complications apparent and Pt Satisfied with anesthetic care
[2020-03-09] MEDS: Scopolamine CHECK PATCH PLACEMENT SCH (16:37)
--- NOTE | 2020-03-09 17:30 | Operative Report ---
Post Operative Report Pre & Post Diagnosis Operation Date: 03/09/20 12:30 Pre-Op Diagnosis: Left Knee Degenerative Joint Disease; Knee Pain Post-Op Diagnosis: Left Knee Degenerative Joint Disease; Knee Pain I identified the patient and participated in the time-out.: Yes Procedure Operation Date: 03/09/20 12:30 Actual Procedures p Left Total Knee Replacement(Left) - Hector Mohan MD Surgeon Hector Mohan MD Pulmonary Function Technologist Vanessa, PAC Estimated Blood Loss 50 Findings Consistent with Post-Op Diagnosis Operative findings revealed advanced left knee DJD. He had extensive grade 4 [id number]-[id number] disease and eburnation of the entire medial compartment with a fixed varus deformity to his knee and bony destruction of the proximal medial tibia. He had a large knee joint effusion. He had a grade 4 changes the patellofemoral joint as well. The lateral compartment was pretty well spared. Fluids 1300 cc. Specimens Left knee sent for pathology. Drains None. Anesthesia Type Spinal MAC Complications none Disposition Accompanied Patient To Recovery: No Disposition: Recovery Room Indications Patient is a 59-year-old very active roth has had a long history of bilateral knee pain discomfort. He has been through extensive conservative treatment the past. He is markedly limited by his knee pain. He underwent a right knee replacement 1 year ago with remarkably good results. He is now elected proceed with left total knee arthroplasty. Description of Procedure Operative implants consist of: 1 Biomet Vanguard size 75 left posterior stabilized femoral component. 2. Biomet Vanguard 360 tibial tray with a 19 x 80 mm offset stem extension with a 2.5 mm offset and small cruciate wing. 3. 14 mm posterior stabilized polyethylene insert. 4. 34 x 8 all polypatella. Patient was taken to the operating identified and placed in the operating table supine position all contact areas were properly padded. IV antibiotics arrived by anesthesia team. A spinal anesthetic and abductor canal block had been provided in the holding area. Martin catheter was placed in sterile fashion. Left thigh turn was then placed in the left lower extremities and prepped and draped in usual sterile fashion. The left leg was elevated exsanguinated with use of an Esmarch and turns placed at 300 mmHg. An anterior approach left knee was then performed to longitudinal incision centered over the patella. Sharp dissection was got through subcut aneous tissue down the extensor mechanism. A medial parapatellar arthrotomy incision was made. Some subperiosteal dissection was carried out medially. I did an extensive medial and posterior medial dissection due to his tight the medial side. The fat pad was resected from each patella tendon. Lateral patellofemoral ligament was released. Patella was subluxated laterally and the knee was flexed. The osteophytes were taken off distal femur. The ACL and PCL were then released in the distal femur to have the tibia subluxated anteriorly. The tibial eminence was resected. I then reamed at tibial canal. I reamed up to a 15 and then used this to cut the proximal tibia. We cut the proximal tibia to remove a millimeter bone from the most efficient aspect medial tibial plateau. I then reamed up to a size 19 for the stem. Some osteophytes were taken off medial and posterior medially. Tibia was sized to a size 79. I then prepared the tibia for a small cruciate wing and offset stem. The trial implant was assembled and placed. Attention drawn the femur. The distal femur was entered the sharp drop with intramedullary canal was suction. A left 6 degree valgus cutting guide was placed but distal femoral cutting block was pinned in place. The distal femoral cut was made to take an additional 3 mm bone off distal femur. The femur was then sized to a size 75. In the AP cutting block was pinned parallel to the epicondylar axis which was 5 degrees of external rotation. The anterior cut, anterior chamfer, posterior cut, posterior chamfer cuts were made. Box cutting guide was placed in just slight lateral box cut was made. The knee was flexed. The remnants of medial lateral menisci were excised. The osteophytes were taken off the posterior aspect of the femur. A trial femoral component was placed. The knee was then trialed and the 14 mm insert fit most appropriately. Attention drawn the patella. The patella was cleaned of all soft tissues. Patella thickness measured 23 mm in thickness was cut down to 14. I did try to leave this a little thicker due to the fact that he had some fragmentation of his patella on the opposite side. The patella was sized to a size 34. The lug holes were drilled for 34 patella. The lateral osteophyte is moved. Patella button was placed. Knee was taken through range of motion and the patella tracked nicely with no thumbs test. Attention drawn to placing permanent components. All trial components were removed. A bone plug was placed in the distal femur limit blood loss put a double batch [place] G cement was mixed. Biomet Vanguard size 75 left posterior stabilized femoral component, a size 79 tibial tray with a stem and small cruciate wing was placed a followed by a 14 mm posterior stabilized insert and a 34 x 8 and half all polypatella. We cemented the metaphysis and the surface of the tibial tray with a press-fit distally. The knee was brought out in full extension until cement hardened. Final cement check was then performed. Pericapsular tissues were injected with total 100 cc of combination of 20 of Exparel, 30 cc normal saline, 50 cc of quarter percent Marcaine with epinephrine. Patient did receive 1 g tranexamic acid. The tourniquet was then let down for final turn time 89 minutes. Hemostasis assured use electrocautery. The extensor mechanism closed with combination 1 PDS suture #1 Vicryl suture in [id number] fashion. Extensor mechanism checked found to be intact the subcutaneous tissue then closed with 2 Dexon suture in a buried interrupted fashion. Skin was closed skin shweta. The leg was then cleaned and dried a sterile dressing composed Xeroform, 4 x 4's, sterile cast padding, Chase bandage were applied. Patient transferred to the recovery room in stable condition. The patient tolerated procedure well and there were no complications. Ceferino Mendez, my physician desk assistant, was present for the entire procedure. His assistance was essential and required for appropriate patient positioning, prepping and draping, surgical exposure, performing the technical details of the operation, placement the implants, closure of the wound, and placement of the sterile bandage. I attest to the content of the Intraoperative Record and any orders documented therein. Any exceptions are noted below.
[2020-03-09] MEDS: SODIUM CHLORIDE 0.9% 1000ML 1,000 ML IV SCH (17:45)
[2020-03-09] MEDS: FERROUS GLUCONATE 324 MG TAB PO SCH (17:46)
[2020-03-09] MEDS: KETOROLAC 30 MG/ML VIAL IV SCH (17:47)
[2020-03-09] MEDS: ASCORBIC ACID 500 MG TAB PO SCH (17:47)
[2020-03-09] MEDS: ASPIRIN 81 MG ECTAB PO SCH (20:06)
[2020-03-09] MEDS: DOCUSATE SODIUM 100 MG CAP PO SCH (20:06)
[2020-03-09] MEDS: TAPENTADOL HCL ER 50 MG TABCR PO SCH (20:08)
[2020-03-09] MEDS: ceFAZolin 2000MG 2,000 MG/15 ML SYR IV SCH (20:08)
[2020-03-09] MEDS ORDERED: SENNA 8.6 MG TAB PO SCH (21:00)
[2020-03-09] MEDS: ACETAMINOPHEN 500 MG TAB PO SCH (21:07)
[2020-03-09] MEDS: oxyCODONE HCL IR 5 MG TAB (IMMEDIATE RELEASE) PO PRN (21:11)
[2020-03-09] MEDS ORDERED: TRANEXAMIC ACID / 0.7% NACL 1,000 MG/100 ML BAG IV SCH (21:30)
[2020-03-10] MEDS: KETOROLAC 30 MG/ML VIAL IV SCH ×3 (00:21→13:25)
[2020-03-10] MEDS: Scopolamine CHECK PATCH PLACEMENT SCH ×3 (00:21→15:12)
[2020-03-10] MEDS: SODIUM CHLORIDE 0.9% 1000ML 1,000 ML IV SCH ×2 (00:25→05:44)
[2020-03-10] MEDS: ceFAZolin 2000MG 2,000 MG/15 ML SYR IV SCH (05:14)
[2020-03-10] MEDS: ACETAMINOPHEN 500 MG TAB PO SCH ×2 (05:14→13:25)
[2020-03-10] MEDS: oxyCODONE HCL IR 5 MG TAB (IMMEDIATE RELEASE) PO PRN ×3 (06:51→15:10)
[2020-03-10 06:56] LABS: Hemoglobin 12.4 g/dL (14.0-18.0); Mean Corpuscular Hemoglobin 29.2 pg (25-34); Mean Corpuscular Hgb Conc 33.5 g/dL (32-36); Mean Corpuscular Volume 87.1 fL (80-100); Mean Platelet Volume 9.5 fL (7.4-10.4); Platelet Count 156 K/uL (130-400); RDW Coefficient of Variation 12.8 % (11.5-14.5); Red Blood Count 4.25 M/uL (4.7-6.1); White Blood Count 7.99 K/uL (4.8-10.8)
[2020-03-10 07:29] LABS: Calcium 7.6 mg/dl (8.5-10.1); Est GFR (Non-African American) 80.3; Potassium 3.5 mmol/L (3.5-5.1)
[2020-03-10] MEDS: TAPENTADOL HCL ER 50 MG TABCR PO SCH (08:52)
[2020-03-10] MEDS: ASCORBIC ACID 500 MG TAB PO SCH (08:53)
[2020-03-10] MEDS: FERROUS GLUCONATE 324 MG TAB PO SCH (08:53)
[2020-03-10] MEDS: ASPIRIN 81 MG ECTAB PO SCH (08:53)
[2020-03-10] MEDS: DOCUSATE SODIUM 100 MG CAP PO SCH (08:53)
[2020-03-10] MEDS ORDERED: MULTIVITAMIN TAB PO SCH (09:00)
--- NOTE | 2020-03-10 13:34 | Progress Notes ---
DATE: 03/10/2020 SUBJECTIVE: A 59-year-old gentleman postop day 1 from a left knee replacement. He is doing pretty well. Had a pretty good night. He has been getting around pretty well in his room. No chest pain or shortness of breath. Not feeling dizzy or lightheaded. OBJECTIVE: VITAL SIGNS: Temperature 36.8. Vital signs stable. GENERAL: Shows a pleasant, middle-aged male. He is lying in bed this morning and looks pretty comfortable. EXTREMITIES: Examination of the left leg reveals the leg to be well aligned. He can do a good straight leg raise. He can dorsiflex and plantarflex his foot appropriately. He is neurologically intact. LABORATORY DATA: Hemoglobin 12.4. Hematocrit 37.0. Electrolytes are stable. ASSESSMENT: A 59-year-old gentleman postoperative day 1 from left knee replacement, doing pretty well. His pain is controlled. He is neurologically intact. PLAN: 1. DVT prophylaxis including thigh-high TEDs, SCDs, and aspirin twice a day. 2. PT/OT. Weight bear as tolerated. Left total knee protocol. 3. Pain control, doing well with current pain regimen. 4. Disposition: Plan to discharge to home. He is going to do therapy on his own. If he has any problems, he will call us and we will get him into formal therapy.
--- NOTE | 2020-03-12 15:51 | Discharge Summary ---
Date of Service March 12, 2020 Admission HPI Per Admitting Provider Documented in the H & P Admission Exam (Per Admitting) Constitutional Documented in the H & P Discharge Data Consultations 03/09/20 16:19 Consult Case Management - Discharge Planning Routine Procedures Performed Operation Date: 03/09/20 12:30 Actual Procedures p Left Total Knee Replacement(Left) - Hector Mohan MD Hospital Course (1) Status post total left knee replacement: This patient is a 59 year old male admitted on 03/09/20 and underwent total knee arthroplasty. He tolerated the procedure well and there were no complications. Transferred to the PACU post op and later to the orthopedic floor for further care. He was given ancef for antibiotic prophylaxis. He was also gi getachew EMELY stockings, SCDs, and aspirin for DVT prophylaxis. Hemoglobin, hematocrit, and vital signs were monitored during his hospital stay and remained stable. Did not require any blood transfusions. There were no complications during his hospital stay. By post op day #1 the patient was tolerating a regular diet, pain was reasonably controlled with oral pain medicine, and he was participating in physical therapy. On post op day #1 the patient was discharged home. He was given printed discharge instructions including prescriptions for extra strength tylenol, aspirin, and oxycodone. Continue physical therapy, weight bearing as tolerated. Continue EMELY stockings. Follow up approximately 2 weeks post op or sooner if there are problems or concerns. Coding Level of Care Code None Diagnoses Status post total left knee replacement Z96.652
== END 2020-03-10 16:51 | disposition home or self-care (01) ==
LOC: ASU 10:25 → 3E 10:25